=== PATIENT | female | born 1985 | race Caucasian/White ===

== ENCOUNTER 2018-05-05 07:15 | Emergency (ER) | payer MEDICAID ==
[2018-05-05] MEDS: SOD CHLORIDE 0.9% 500 ML IV (08:03)
[2018-05-05] MEDS: ACETAMINOPHEN 500 MG TAB PO (08:04)
[2018-05-05] MEDS: ONDANSETRON 4 MG INJ IV (08:04)
[2018-05-05] MEDS: KETOROLAC 30 MG INJ IV (08:11)
[2018-05-05] MEDS: CEFTRIAXONE 1 GM/50 ML (PMX) 50 ML IVPB (08:16)
[2018-05-05 08:18] LABS: ADD MAN DIFF? NO
[2018-05-05 08:22] LABS: ABNORMAL IP MESSAGE 1; BASOPHILS % 0.2 % (0.0-2.0); EOSINOPHILS % 0.5 % (0.0-7.0); HEMOGLOBIN 12.2 g/dl (12.0-16.0); LYMPHOCYTES # 0.2 10^3/ul (0.8-2.9); LYMPHOCYTES % 4.6 % (15.0-51.0); MEAN CORPUSCULAR HEMOGLOBIN 31.6 pg (29.0-33.0); MEAN CORPUSCULAR HGB CONC 33.9 g/dl (32.0-37.0); MEAN CORPUSCULAR VOLUME 93.3 fl (82.0-101.0); MONOCYTE # 0.1 10^3/ul (0.3-0.9); MONOCYTES % 1.1 % (0.0-11.0); NEUTROPHIL # 4.1 10^3/ul (1.6-7.5); NEUTROPHILS % 93.4 % (39.0-77.0); PLATELET COUNT 95 10^3/UL (140-415); RED BLOOD COUNT 3.86 10^6/ul (4.20-5.40); RED CELL DISTRIBUTION WIDTH 11.9 % (11.5-14.5)
[2018-05-05 08:22] LABS: WHITE BLOOD COUNT 4.4 10^3/ul (4.8-10.8)
[2018-05-05 08:31] LABS: POSITIVE DIFF @See below
[2018-05-05 08:43] LABS: ADD UMIC YES; UR ASCORBIC ACID NEGATIVE (NEGATIVE); UR BACTERIA FEW /HPF (NONE SEEN); UR BILIRUBIN (Dip) NEGATIVE (NEGATIVE); UR BLOOD (Dip) 1+ mg/dL (NEGATIVE); UR CLARITY CLEAR (CLEAR); UR COLOR YELLOW (YELLOW); UR GLUCOSE (Dip) NEGATIVE (NEGATIVE); UR KETONES (Dip) 1+ mg/dL (NEGATIVE); UR LEUKOCYTE ESTERASE (Dip) NEGATIVE Leu/ul (NEGATIVE); UR NITRITE (Dip) NEGATIVE (NEGATIVE); UR NONSQUAMOUS EPITHELIAL CELL 4 /HPF (NONE SEEN); UR RBC 44 /HPF (0-5); UR SPECIFIC GRAVITY (Dip) 1.021 (1.003-1.030); UR SQUAMOUS EPITHELIAL CELL FEW /HPF (FEW); UR TOTAL PROTEIN (Dip) NEGATIVE (NEGATIVE); UR UROBILINOGEN (Dip) 1+ mg/dL (NEGATIVE); UR WBC 16 /HPF (0-5)
[2018-05-05 08:51] LABS: ALANINE AMINOTRANSFERASE 65 IU/L (13-69); ALBUMIN 3.7 g/dl (3.3-4.9); ALBUMIN/GLOBULIN RATIO 1.19; ALKALINE PHOSPHATASE 88 IU/L (42-121); ANION GAP 12 (8-16); ASPARTATE AMINO TRANSFERASE 82 IU/L (15-46); BILIRUBIN,INDIRECT 1.2 mg/dl (0-1.1); BILIRUBIN,TOTAL 1.2 mg/dl (0.2-1.3); BLOOD UREA NITROGEN 10 mg/dl (7-20); CALCIUM 8.9 mg/dl (8.4-10.2); CARBON DIOXIDE 27 mmol/L (21-31); CHLORIDE 105 mmol/L (97-110); CREATININE 0.64 mg/dl (0.44-1.00); GLUCOSE 123 mg/dl (70-220); LIPASE 62 U/L (23-300); POTASSIUM 3.5 mmol/L (3.5-5.1); SODIUM 140 mmol/L (135-144); TOTAL PROTEIN 6.8 g/dl (6.1-8.1)
== END 2018-05-05 09:42 | disposition home or self-care (01) ==
LOC: FTE 07:15
DX: N39.0 Urinary tract infection, site not specified (principal)
CPT/HCPCS: 36415; 80053; 81001; 81025; 83690; 85025; 87086; 96365; 96375; 99284-25

== ENCOUNTER 2018-05-26 13:22 | Emergency (ER) | payer MEDICAID ==
[2018-05-26] MEDS ORDERED: KETOROLAC 30 MG INJ IM (14:27)
[2018-05-26 14:51] LABS: ADD UMIC NO; UR ASCORBIC ACID NEGATIVE (NEGATIVE); UR BILIRUBIN (Dip) NEGATIVE (NEGATIVE); UR BLOOD (Dip) NEGATIVE (NEGATIVE); UR CLARITY CLEAR (CLEAR); UR COLOR YELLOW (YELLOW); UR GLUCOSE (Dip) NEGATIVE (NEGATIVE); UR KETONES (Dip) TRACE mg/dL (NEGATIVE); UR LEUKOCYTE ESTERASE (Dip) NEGATIVE Leu/ul (NEGATIVE); UR NITRITE (Dip) NEGATIVE (NEGATIVE); UR SPECIFIC GRAVITY (Dip) 1.017 (1.003-1.030); UR TOTAL PROTEIN (Dip) NEGATIVE (NEGATIVE); UR UROBILINOGEN (Dip) NEGATIVE (NEGATIVE)
[2018-05-26] MEDS: ACETAMINOPHEN 500 MG TAB PO (14:51)
[2018-05-26] MEDS: METOCLOPRAMIDE 10 MG TAB PO (14:53)
== END 2018-05-26 15:05 | disposition home or self-care (01) ==
LOC: FTE 13:22
DX: R10.9 Unspecified abdominal pain (principal); R11.0 Nausea; Z32.01 Encounter for pregnancy test, result positive
CPT/HCPCS: 81003; 81025; 99283

== ENCOUNTER 2018-07-26 00:44 | Emergency (ER) | payer MEDICAID ==
[2018-07-26] MEDS: ACETAMINOPHEN 500 MG TAB PO (02:07)
[2018-07-26] MEDS: METOCLOPRAMIDE 10 MG INJ IV (02:07)
[2018-07-26] MEDS: SOD CHLORIDE 0.9% 1,000 ML IV (02:08)
[2018-07-26 02:33] LABS: ADD MAN DIFF? NO
[2018-07-26 02:36] LABS: BASOPHILS % 0.3 % (0.0-2.0); EOSINOPHILS # 0.1 10^3/ul (0.0-0.5); EOSINOPHILS % 0.9 % (0.0-7.0); HEMATOCRIT 34.2 % (37.0-47.0); LYMPHOCYTES # 1.6 10^3/ul (0.8-2.9); LYMPHOCYTES % 24.8 % (15.0-51.0); MEAN CORPUSCULAR HEMOGLOBIN 31.9 pg (29.0-33.0); MEAN CORPUSCULAR HGB CONC 35.1 g/dl (32.0-37.0); MEAN PLATELET VOLUME 11.8 fl (7.4-10.4); MONOCYTE # 0.4 10^3/ul (0.3-0.9); MONOCYTES % 5.8 % (0.0-11.0); NEUTROPHIL # 4.3 10^3/ul (1.6-7.5); NEUTROPHILS % 67.9 % (39.0-77.0); PLATELET COUNT 147 10^3/UL (140-415); RED BLOOD COUNT 3.76 10^6/ul (4.20-5.40); RED CELL DISTRIBUTION WIDTH 11.4 % (11.5-14.5)
[2018-07-26 02:36] LABS: WHITE BLOOD COUNT 6.4 10^3/ul (4.8-10.8)
[2018-07-26 02:48] LABS: ADD UMIC NO; UR AMORPHOUS CRYSTAL FEW /HPF (NONE SEEN); UR ASCORBIC ACID NEGATIVE (NEGATIVE); UR BACTERIA FEW /HPF (NONE SEEN); UR BILIRUBIN (Dip) NEGATIVE (NEGATIVE); UR BLOOD (Dip) NEGATIVE (NEGATIVE); UR CLARITY SLIGHTLY CLOUDY (CLEAR); UR COLOR YELLOW (YELLOW); UR GLUCOSE (Dip) NEGATIVE (NEGATIVE); UR KETONES (Dip) NEGATIVE (NEGATIVE); UR LEUKOCYTE ESTERASE (Dip) NEGATIVE Leu/ul (NEGATIVE); UR MUCUS FEW /HPF (NONE SEEN); UR NITRITE (Dip) NEGATIVE (NEGATIVE); UR RBC 1 /HPF (0-5); UR SPECIFIC GRAVITY (Dip) 1.011 (1.003-1.030); UR SQUAMOUS EPITHELIAL CELL FEW /HPF (FEW); UR TOTAL PROTEIN (Dip) NEGATIVE (NEGATIVE); UR UROBILINOGEN (Dip) NEGATIVE (NEGATIVE); UR WBC 3 /HPF (0-5)
[2018-07-26 02:51] LABS: ALANINE AMINOTRANSFERASE 26 IU/L (13-69); ALBUMIN 3.8 g/dl (3.3-4.9); ALBUMIN/GLOBULIN RATIO 1.22; ALKALINE PHOSPHATASE 61 IU/L (42-121); AMYLASE 83 U/L (11-123); ANION GAP 12 (5-13); ASPARTATE AMINO TRANSFERASE 19 IU/L (15-46); BILIRUBIN,INDIRECT 0.4 mg/dl (0-1.1); BILIRUBIN,TOTAL 0.4 mg/dl (0.2-1.3); BLOOD UREA NITROGEN 7 mg/dl (7-20); CALCIUM 9.1 mg/dl (8.4-10.2); CARBON DIOXIDE 22 mmol/L (21-31); CHLORIDE 107 mmol/L (97-110); CREATININE 0.45 mg/dl (0.44-1.00); Estimated GFR > 60 mL/min (>60); GLUCOSE 93 mg/dl (70-220); LIPASE 96 U/L (23-300); POTASSIUM 3.8 mmol/L (3.5-5.1); SODIUM 141 mmol/L (135-144); TOTAL PROTEIN 6.9 g/dl (6.1-8.1)
== END 2018-07-26 04:10 | disposition home or self-care (01) ==
LOC: FTE 00:44
DX: O26.891 Other specified pregnancy related conditions, first trimester (principal); R10.2 Pelvic and perineal pain; Z3A.14 14 weeks gestation of pregnancy
CPT/HCPCS: 76705; 76805; 80053; 81001; 81003; 82150; 83690; 84702; 85025; 86900; 86901; 87086; 96374; 99285-25

== ENCOUNTER 2018-12-20 02:45 | Emergency (ER) | payer MEDICAID ==
[2018-12-20 03:51] LABS: ADD MAN DIFF? NO
[2018-12-20 04:12] LABS: PARTIAL THROMBOPLASTIN TIME 26.1 Sec (23.0-35.0); PROTIME 12.3 Sec (11.9-14.9)
[2018-12-20 04:29] LABS: BASOPHILS % 0.2 % (0.0-2.0); EOSINOPHILS # 0.1 10^3/ul (0.0-0.5); EOSINOPHILS % 1.5 % (0.0-7.0); HEMATOCRIT 30.3 % (37.0-47.0); HEMOGLOBIN 10.1 g/dl (12.0-16.0); LYMPHOCYTES # 1.4 10^3/ul (0.8-2.9); LYMPHOCYTES % 33.6 % (15.0-51.0); MEAN CORPUSCULAR HEMOGLOBIN 29.5 pg (29.0-33.0); MEAN CORPUSCULAR HGB CONC 33.3 g/dl (32.0-37.0); MEAN CORPUSCULAR VOLUME 88.6 fl (82.0-101.0); MEAN PLATELET VOLUME 12.6 fl (7.4-10.4); MONOCYTE # 0.3 10^3/ul (0.3-0.9); MONOCYTES % 8.3 % (0.0-11.0); NEUTROPHIL # 2.3 10^3/ul (1.6-7.5); NEUTROPHILS % 56.2 % (39.0-77.0); PLATELET COUNT 119 10^3/UL (140-415); RED BLOOD COUNT 3.42 10^6/ul (4.20-5.40); RED CELL DISTRIBUTION WIDTH 12.6 % (11.5-14.5)
[2018-12-20 04:29] LABS: WHITE BLOOD COUNT 4.1 10^3/ul (4.8-10.8)
[2018-12-20 04:30] LABS: ALBUMIN/GLOBULIN RATIO 0.96; ANION GAP 4 (5-13); BILIRUBIN,TOTAL 0.3 mg/dl (0.2-1.3); Estimated GFR > 60 mL/min (>60)
[2018-12-20 04:32] LABS: CARBON DIOXIDE 21 mmol/L (21-31); CHLORIDE 112 mmol/L (97-110); SODIUM 137 mmol/L (135-144)
[2018-12-20 04:33] LABS: ALANINE AMINOTRANSFERASE 27 IU/L (13-69); ALBUMIN 2.8 g/dl (3.3-4.9); ALKALINE PHOSPHATASE 211 IU/L (42-121); ASPARTATE AMINO TRANSFERASE 20 IU/L (15-46); BILIRUBIN,INDIRECT 0.3 mg/dl (0-1.1); BLOOD UREA NITROGEN 5 mg/dl (7-20); CALCIUM 8.7 mg/dl (8.4-10.2); GLUCOSE 97 mg/dl (70-220); TOTAL PROTEIN 5.7 g/dl (6.1-8.1)
== END 2018-12-20 05:17 | disposition home or self-care (01) ==
LOC: FTE 02:45
DX: O12.03 Gestational edema, third trimester (principal); M79.661 Pain in right lower leg; Z3A.29 29 weeks gestation of pregnancy
CPT/HCPCS: 80053; 85025; 85610; 85730; 93971; 99284-25

== ENCOUNTER 2018-12-29 03:37 | Emergency (ER) | payer MEDICAID ==
[2018-12-29 04:39] LABS: URINE BLOOD (Dip) POC Trace-lysed (NEGATIVE); URINE GLUCOSE (Dip) POC Negative (NEGATIVE); URINE KETONES (Dip) POC Negative (NEGATIVE); URINE LEUKOCYTE EST (Dip) POC 3+ (NEGATIVE); URINE NITRITE (Dip) POC Negative (NEGATIVE); URINE TOTAL PROTEIN POC Negative (NEGATIVE)
== END 2018-12-29 05:01 | disposition home or self-care (01) ==
LOC: FTE 05:01
DX: O26.893 Other specified pregnancy related conditions, third trimester (principal); R05 Cough; O23.43 Unspecified infection of urinary tract in pregnancy, third trimester
CPT/HCPCS: 81003; 99283

== ENCOUNTER 2018-12-29 05:10 | Inpatient (IN) | payer MEDICAID ==
[2018-12-29] MEDS: NIFEdipine 10 MG CAP PO (06:44)
[2018-12-29] MEDS: AMOXICILLIN 500 MG CAP PO ×2 (12:25→18:43)
[2018-12-29] MEDS: LACTATED RINGER'S 1,000 ML IV ×2 (12:25→20:03)
[2018-12-29] MEDS: ALBUTEROL HFA 8 GM INHALER INH ×3 (16:00→23:57)
[2018-12-29] MEDS: HYDROCODONE/APAP (5/325) TAB PO (16:09)
[2018-12-29] MEDS: GUAIFENESIN/DM 5ML CUP PO (18:43)
[2018-12-29] MEDS ORDERED: DIPHENHYDRAMINE 25 MG CAP PO (21:00)
[2018-12-30] MEDS: GUAIFENESIN/DM 5ML CUP PO ×2 (03:29→12:18)
[2018-12-30] MEDS: LACTATED RINGER'S 1,000 ML IV (04:12)
[2018-12-30] MEDS: ALBUTEROL HFA 8 GM INHALER INH ×4 (04:26→13:00)
[2018-12-30] MEDS: AMOXICILLIN 500 MG CAP PO ×3 (06:00→12:18)
== END 2018-12-30 14:25 | disposition home or self-care (01) | DRG 833 ==
LOC: OBT 05:10 → L-D 05:10 → OBT 11:25 → L-D 10:30
PROVIDERS: Obstetrics & Gynecology
DX: O24.419 Gestational diabetes mellitus in pregnancy, unspecified control (principal); Z3A.36 36 weeks gestation of pregnancy
CPT/HCPCS: 76818; 82962

== ENCOUNTER 2019-01-13 05:43 | Inpatient (IN) | payer MEDICAID ==
[2019-01-13] MEDS ORDERED: METHYLERGONOVINE 0.2 MG INJ IM ×2 (06:00→16:00)
[2019-01-13] MEDS ORDERED: CARBOPROST 250 MCG INJ IM ×2 (06:00→16:00)
[2019-01-13] MEDS ORDERED: MISOPROSTOL 200 MCG TAB PR ×2 (06:00→16:00)
[2019-01-13] MEDS ORDERED: OXYTOCIN 30 UNITS/LR 500 ML IV ×3 (06:00→16:00)
[2019-01-13 06:26] LABS: ADD MAN DIFF? NO
[2019-01-13] MEDS: LACTATED RINGER'S 1,000 ML IV ×2 (06:26→09:43)
[2019-01-13 06:30] LABS: ABNORMAL IP MESSAGE 1; BASOPHILS % 0.5 % (0.0-2.0); EOSINOPHILS # 0.1 10^3/ul (0.0-0.5); EOSINOPHILS % 1.2 % (0.0-7.0); HEMATOCRIT 31.4 % (37.0-47.0); HEMOGLOBIN 10.2 g/dl (12.0-16.0); LYMPHOCYTES # 1.5 10^3/ul (0.8-2.9); LYMPHOCYTES % 37.4 % (15.0-51.0); MEAN CORPUSCULAR HEMOGLOBIN 28.5 pg (29.0-33.0); MEAN CORPUSCULAR HGB CONC 32.5 g/dl (32.0-37.0); MEAN CORPUSCULAR VOLUME 87.7 fl (82.0-101.0); MONOCYTE # 0.3 10^3/ul (0.3-0.9); MONOCYTES % 6.7 % (0.0-11.0); NEUTROPHIL # 2.2 10^3/ul (1.6-7.5); NEUTROPHILS % 53.7 % (39.0-77.0); PLATELET COUNT 109 10^3/UL (140-415); RED BLOOD COUNT 3.58 10^6/ul (4.20-5.40); RED CELL DISTRIBUTION WIDTH 13.3 % (11.5-14.5)
[2019-01-13 06:50] LABS: INR 0.85; PROTIME 11.7 Sec (11.9-14.9); PT RATIO 0.9
[2019-01-13 06:51] LABS: PARTIAL THROMBOPLASTIN TIME 26.6 Sec (23.0-35.0)
[2019-01-13 07:27] LABS: POSITIVE DIFF @See below
[2019-01-13 07:30] LABS: HEPATITIS B SURFACE ANTIGEN NEGATIVE (NEGATIVE)
[2019-01-13] MEDS ORDERED: METOCLOPRAMIDE 10 MG INJ IV (07:30)
[2019-01-13] MEDS: CITRIC ACID/NA CITRATE 30 ML CUP PO (07:38)
[2019-01-13] MEDS: ONDANSETRON 4 MG INJ IV (07:38)
[2019-01-13] MEDS ORDERED: FENTAnyl 50 MCG/ML VIAL (08:01)
[2019-01-13] MEDS ORDERED: OXYTOCIN 10 UNIT INJ (08:02)
[2019-01-13] MEDS ORDERED: morphine SULFATE/PF (10 MG/10 ML) INJ (08:02)
[2019-01-13] MEDS ORDERED: METOCLOPRAMIDE 10 MG INJ (08:02)
[2019-01-13] MEDS ORDERED: NALOXONE (0.4 MG/ML) INJ IV (08:30)
[2019-01-13] MEDS ORDERED: DIPHENHYDRAMINE 50 MG INJ IV ×2 (08:30)
[2019-01-13] MEDS ORDERED: FENTAnyl 50 MCG/ML VIAL IV ×3 (08:30)
[2019-01-13] MEDS ORDERED: OXYCODONE/ACETAMINOPHEN (5/325) TAB PO ×2 (08:30)
[2019-01-13] MEDS ORDERED: TRIMETHOBENZAMIDE 100 MG/ML VIAL IM ×2 (08:30)
[2019-01-13] MEDS ORDERED: ZOLPIDEM 5 MG TAB PO (08:30)
[2019-01-13] MEDS ORDERED: hydrALAzine 20 MG INJ IV (08:30)
[2019-01-13] MEDS ORDERED: morphine 2 MG INJ IV ×2 (08:30)
[2019-01-13] MEDS ORDERED: NALBUPHINE HCL (10 MG/1 ML) INJ IV (08:30)
[2019-01-13] MEDS ORDERED: MEPERIDINE 25 MG INJ IV (08:30)
[2019-01-13] MEDS ORDERED: MIDAZOLAM 1 MG/ML 2 ML INJ IV (08:30)
[2019-01-13] MEDS ORDERED: HYDROmorphONE 1 MG/5 ML IV SYRINGE IV ×3 (08:30)
[2019-01-13] MEDS ORDERED: ONDANSETRON 4 MG INJ IV ×2 (08:30)
[2019-01-13] MEDS ORDERED: EPHEDrine 25 MG/5 ML SYG IV (08:30)
[2019-01-13] MEDS ORDERED: IPRATROPIUM (NEB) 0.5 MG/2.5 ML AMP HHN (08:30)
[2019-01-13] MEDS ORDERED: ALBUTEROL 0.083% (NEB) 2.5 MG/3 ML AMP HHN (08:30)
[2019-01-13] MEDS ORDERED: LABETALOL HCL 20MG INJ IV (08:30)
[2019-01-13] MEDS: CEFAZOLIN 2 GM/50 ML (PMX) 50 ML IVPB (13:58)
[2019-01-13 15:06] LABS: RAPID PLASMA REAGIN NONREACTIVE (NR)
[2019-01-13] MEDS: DEXTROSE 5%-LR 1,000 ML IV ×2 (15:47→20:59)
[2019-01-13] MEDS ORDERED: MAGNESIUM HYDROXIDE 30ML CUP PO (16:00)
[2019-01-13] MEDS ORDERED: METHYLERGONOVINE 0.2 MG TAB PO (16:00)
[2019-01-13] MEDS ORDERED: LANOLIN HPA 1 PKT TOP (16:00)
[2019-01-13] MEDS: OXYTOCIN 30 UNITS/LR 500 ML IV (16:33)
[2019-01-13] MEDS: SENNA/DOCUSATE NA (8.6MG/50MG) TAB PO (21:00)
[2019-01-14] MEDS: DEXTROSE 5%-LR 1,000 ML IV ×3 (04:33→23:47)
[2019-01-14] MEDS: KETOROLAC 30 MG INJ IV (04:33)
[2019-01-14 08:17] LABS: ADD MAN DIFF? NO
[2019-01-14 08:23] LABS: ABNORMAL IP MESSAGE 1; BASOPHILS % 0.2 % (0.0-2.0); EOSINOPHILS % 0.6 % (0.0-7.0); HEMATOCRIT 26.9 % (37.0-47.0); HEMOGLOBIN 8.6 g/dl (12.0-16.0); LYMPHOCYTES # 0.8 10^3/ul (0.8-2.9); LYMPHOCYTES % 17.3 % (15.0-51.0); MEAN CORPUSCULAR HEMOGLOBIN 27.9 pg (29.0-33.0); MEAN CORPUSCULAR VOLUME 87.3 fl (82.0-101.0); MEAN PLATELET VOLUME 13.4 fl (7.4-10.4); MONOCYTE # 0.2 10^3/ul (0.3-0.9); MONOCYTES % 4.9 % (0.0-11.0); NEUTROPHIL # 3.6 10^3/ul (1.6-7.5); NEUTROPHILS % 76.6 % (39.0-77.0); PLATELET COUNT 80 10^3/UL (140-415); RED BLOOD COUNT 3.08 10^6/ul (4.20-5.40); RED CELL DISTRIBUTION WIDTH 13.7 % (11.5-14.5)
[2019-01-14 08:23] LABS: WHITE BLOOD COUNT 4.7 10^3/ul (4.8-10.8)
[2019-01-14] MEDS: SENNA/DOCUSATE NA (8.6MG/50MG) TAB PO ×2 (09:31→21:59)
[2019-01-14] MEDS ORDERED: DIPHTH/TET/ACEL PERTUSS (ADULT) 0.5 ML VIAL IM* ×2 (11:00→18:30)
[2019-01-14] MEDS ORDERED: HYDROCODONE/APAP (5/325) TAB PO (11:00)
[2019-01-14] MEDS ORDERED: HYDROCODONE/APAP (5/325) TAB NGT (11:00)
[2019-01-14] MEDS: HYDROCODONE/APAP (5/325) TAB PO ×2 (12:35→21:59)
[2019-01-14] MEDS ORDERED: HYDROCODONE/APAP (5/325) TAB GTB (14:00)
[2019-01-14] MEDS ORDERED: GUAIFENESIN 20 MG/ML 5ML CUP PO (14:30)
[2019-01-14] MEDS: IBUPROFEN 800 MG TAB PO ×2 (14:45→21:59)
[2019-01-14] MEDS: DOCUSATE SODIUM 100 MG CAP PO ×2 (15:02→21:58)
[2019-01-14] MEDS: POLYSACCHARIDE IRON COMPLEX CAP PO ×2 (15:02→21:59)
[2019-01-14] MEDS: GUAIFENESIN 20 MG/ML 5ML CUP PO (15:03)
[2019-01-15] MEDS: IBUPROFEN 800 MG TAB PO ×3 (05:46→21:55)
[2019-01-15] MEDS: HYDROCODONE/APAP (5/325) TAB PO ×3 (05:47→21:55)
[2019-01-15] MEDS: DEXTROSE 5%-LR 1,000 ML IV ×3 (06:35→23:47)
[2019-01-15 08:14] LABS: ADD MAN DIFF? NO
[2019-01-15 08:17] LABS: WHITE BLOOD COUNT 4.6 10^3/ul (4.8-10.8)
[2019-01-15 08:17] LABS: ABNORMAL IP MESSAGE 1; BASOPHILS % 0.4 % (0.0-2.0); EOSINOPHILS # 0.1 10^3/ul (0.0-0.5); HEMOGLOBIN 8.4 g/dl (12.0-16.0); LYMPHOCYTES # 1.1 10^3/ul (0.8-2.9); LYMPHOCYTES % 22.9 % (15.0-51.0); MEAN CORPUSCULAR HEMOGLOBIN 28.6 pg (29.0-33.0); MEAN CORPUSCULAR HGB CONC 32.3 g/dl (32.0-37.0); MEAN CORPUSCULAR VOLUME 88.4 fl (82.0-101.0); MEAN PLATELET VOLUME 13.6 fl (7.4-10.4); MONOCYTE # 0.4 10^3/ul (0.3-0.9); MONOCYTES % 7.6 % (0.0-11.0); NEUTROPHILS % 65.7 % (39.0-77.0); PLATELET COUNT 96 10^3/UL (140-415); RED BLOOD COUNT 2.94 10^6/ul (4.20-5.40); RED CELL DISTRIBUTION WIDTH 13.8 % (11.5-14.5)
[2019-01-15 08:21] LABS: POSITIVE DIFF @See below
[2019-01-15] MEDS: SENNA/DOCUSATE NA (8.6MG/50MG) TAB PO ×2 (09:28→20:47)
[2019-01-15] MEDS: DOCUSATE SODIUM 100 MG CAP PO ×2 (09:28→20:47)
[2019-01-15] MEDS: POLYSACCHARIDE IRON COMPLEX CAP PO ×2 (09:28→20:47)
[2019-01-15] MEDS: GUAIFENESIN 20 MG/ML 5ML CUP PO (20:47)
[2019-01-16] MEDS: IBUPROFEN 800 MG TAB PO ×2 (05:45→13:19)
[2019-01-16] MEDS: HYDROCODONE/APAP (5/325) TAB PO ×2 (05:46→13:19)
[2019-01-16] MEDS: DEXTROSE 5%-LR 1,000 ML IV (07:47)
[2019-01-16] MEDS: MEASLES,MUMPS,RUBELLA VACCINE INJ SC* (09:00)
[2019-01-16] MEDS ORDERED: DIPHTH/TET/ACEL PERTUSS (ADULT) 0.5 ML VIAL IM* (09:00)
[2019-01-16] MEDS: POLYSACCHARIDE IRON COMPLEX CAP PO (10:05)
[2019-01-16] MEDS: DOCUSATE SODIUM 100 MG CAP PO (10:06)
[2019-01-16] MEDS: SENNA/DOCUSATE NA (8.6MG/50MG) TAB PO (10:06)
[2019-01-16] MEDS: DIPHTH/TET/ACEL PERTUSS (ADULT) 0.5 ML VIAL IM* (15:14)
== END 2019-01-16 16:48 | disposition home or self-care (01) | DRG 788 ==
LOC: L-D 05:43 → PP1 15:22
PROVIDERS: Obstetrics & Gynecology
PROC: 10D00Z1 Extraction of Products of Conception, Low, Open Approach (ICD-10-PCS; principal; 2019-01-13 07:30)
DX: O65.5 Obstructed labor due to abnormality of maternal pelvic organs (principal); O34.211 Maternal care for low transverse scar from previous cesarean delivery; O24.429 Gestational diabetes mellitus in childbirth, unspecified control; Z3A.39 39 weeks gestation of pregnancy; Z37.0 Single live birth
CPT/HCPCS: 82962; 85025; 85610; 85730; 86592; 86850; 86900; 86901; 87340; 90715; 99464